=== PATIENT | male | born 1995 | race Asian ===

== ENCOUNTER 2020-04-15 10:39 | Outpatient (CLI) | payer BC ==
--- NOTE | 2020-04-15 12:04 | RAD ---
CERVICAL SPINE SERIES 3 VIEWS WITH FLEXION AND EXTENSION: Date: 04/15/2020 HISTORY: Neck pain and tightness. FINDINGS: The vertebral bodies and disc spaces are all well preserved. I see no evidence of any abnormal motion on the flexion or extension views. No soft tissue swelling. IMPRESSION: Unremarkable cervical spine series. POS: [facility]
== END 2020-04-15 10:40 | disposition home or self-care (01) ==
LOC: BICRAD 10:39
PROVIDERS: ATTEND Neurological Surgery
DX: M54.2 Cervicalgia (principal)
CPT/HCPCS: 72040